=== PATIENT | male | born 1950 | race American Indian/Alaskan Native ===

== ENCOUNTER 2017-12-06 19:44 | Emergency (ER) | payer SELFPAY ==
[2017-12-06 20:18] VITALS: BP 126/85
--- NOTE | 2017-12-06 23:19 | XRay Report ---
FINAL REPORT PROCEDURE: XR SPINE CERVICAL 2-3V TECHNIQUE: Cervical spine radiographs, AP, lateral, and open-mouth odontoid views. CPT 47898 HISTORY: Neck pain COMPARISON: No prior studies are available for comparison. FINDINGS: Prevertebral soft tissues: Normal . Alignment: Normal . Vertebral body heights/Disk spaces: There is slight loss of disc space height at the C5-6 and C6-7 levels. Mild spur formation off the vertebral bodies is noted.. Fracture(s): None . Facets: Normal . Bone mineralization: Normal . IMPRESSION: There is no evidence of an acute fracture or dislocation of the cervical spine. Mild cervical spondylosis and degenerative disc change as described.
[2017-12-07] MEDS ORDERED: TYLENOL PO ONE (03:34)
[2017-12-07] MEDS ORDERED: TYLENOL ONE (03:39)
[2017-12-07] MEDS ORDERED: ULTRAM ONE (03:41)
[2017-12-07] MEDS ORDERED: ULTRAM PO ONE (03:48)
[2017-12-07] MEDS ORDERED: D50W (25GM) Syringe IV ONE (04:42)
== END 2017-12-07 03:41 | disposition left against medical advice (07) ==
LOC: ED 19:44
DX: R07.89 Other chest pain (principal); Z53.21 Procedure and treatment not carried out due to patient leaving prior to being seen by health care provider
CPT/HCPCS: 72040; 93005; 93010

== ENCOUNTER 2020-04-01 06:43 | Emergency (ER) | payer SELFPAY ==
[2020-04-01 07:16] VITALS: BP 131/93
[2020-04-01] MEDS ORDERED: IBUPROFEN 600 MG TAB PO ONE (07:54)
--- NOTE | 2020-04-01 07:55 | Emergency Department Report ---
ED Lower Extremity HPI - General Chief Complaint: Extremity Injury, Lower Stated Complaint: RIGHT TOE PAIN Time Seen by Provider: 04/01/20 07:53 Source: patient Mode of arrival: Ambulatory Limitations: No Limitations - History of Present Illness Initial Comments: The patient was evaluated in the emergency department for symptoms described in the history of present illness. He/she was evaluated in the context of the global COVID-19 pandemic, which necessitated consideration that the patient might be at risk for infection with the virus that causes COVID-19. Institutional protocols and algorithms that pertain to the evaluation of patients at risk for COVID-19 are in a state of rapid change based on information released by regulatory bodies including the CDC and federal and state organizations. These policies and algorithms were followed during the patient's care in the emergency department. Please note that these policies, procedures and recommendations changed on a rapid basis. 69-year-old -Citizen Of [place] male presents to the emergency room complaining of right foot pain of his toes status post injury on 03/20/2020. Patient states he was stepping out of the shower when he had injured his right foot toes. Patient states that he tried to set them himself but still having pain. Patient reports that he went to the [facility] to have them evaluated but the ordering doctor put it in for the wrong x-ray of the left foot and they were not able to do it. Therefore patient decided to come here to be evaluated. Patient has been using crutches to help ambulate. 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 MD Complaint: foot injury Onset/Timin -: week(s) Injury: Toes: Right Type of Injury: hyperflexion Place: home Severity: severe Severity scale (0 -10): 10 Improves With: nothing Worsens With: weight bearing, movement, palpation Associated Symptoms: swelling, able to partially bear weight - Related Data Previous Rx's Medication Instructions Recorded Last Taken Type Ibuprofen [Motrin 800 MG tab] 800 mg PO Q8HR PRN #30 tablet 04/01/20 Unknown Rx traMADoL [Ultram 50 MG tab] 50 mg PO Q6HR PRN #15 tablet 04/01/20 Unknown Rx Allergies Allergy/AdvReac Type Severity Reaction Status Date / Time acetaminophen [From Tylenol] AdvReac Unknown Verified 04/01/20 07:10 ED Review of Systems ROS: Stated complaint: RIGHT TOE PAIN Other details as noted in HPI Comment: All other systems reviewed and negative ED Past Medical Hx - Past Medical History Additional medical history: Chronic back pain, degenerative disc, L4-5. Sciatica - Social History Smoking Status: Never Smoker Substance Use Type: None - Medications Home Medications: Home Medications Medication Instructions Recorded Confirmed Last Taken Type Ibuprofen [Motrin 800 MG tab] 800 mg PO Q8HR PRN #30 tablet 04/01/20 Unknown Rx traMADoL [Ultram 50 MG tab] 50 mg PO Q6HR PRN #15 tablet 04/01/20 Unknown Rx ED Physical Exam - General Limitations: No Limitations General appearance: alert, in no apparent distress - Head Head exam: Present: atraumatic, normocephalic - Eye Eye exam: Present: normal appearance, EOMI - ENT ENT exam: Present: mucous membranes moist - Respiratory Respiratory exam: Absent: accessory muscle use - Expanded Lower Extremity Exam Right Hip exam: Present: normal inspection Upper Leg exam: Present: normal inspection Knee exam: Present: normal inspection Lower Leg exam: Present: normal inspection Ankle exam: Present: normal inspection Foot/Toe exam: Present: tenderness, swelling, ecchymosis Neuro vascular tendon exam: Present: no vascular compromise - Back Exam Back exam: Present: normal inspection - Neurological Exam Neurological exam: Present: alert, oriented X3 - Psychiatric Psychiatric exam: Present: normal affect, normal mood - Skin Skin exam: Present: warm, dry, intact, normal color. Absent: rash ED Course Vital Signs 04/01/20 04/01/20 07:14 08:01 Temperature 97.8 F Pulse Rate 57 L Respiratory 18 20 Rate Blood Pressure 131/93 O2 Sat by Pulse 96 Oximetry ED Lower Extremity MDM - Radiology Data Radiology results: report reviewed Patient: IRISH LEMONS MR#: [id number] [birth year] : 1950 Acct:[id number] Age/Sex: 69 / M ADM Date: 04/01/20 Loc: ED Attending Dr: Ordering Physician: HONEY BUCIO MD Date of Service: 04/01/20 Procedure(s): XR foot 3+V RT Accession Number(s): [id number] cc: HONEY BUCIO MD Fluoro Time In Minutes: RIGHT FOOT 3 VIEWS INDICATION / CLINICAL INFORMATION: PAIN AND SWELLING. COMPARISON: None available. FINDINGS: Slightly displaced fractures are demonstrated involving the proximal phalanges of the third, fourth and fifth toes. Signer Name: Sen Geller MD Signed: 04/01/2020 9:18 AM Workstation Name: [id number] Transcribed By: TM Dictated By: Sen Geller MD Electronically Authenticated By: Sen Geller MD Signed Date/Time: 04/01/20917 DD/ 5 TD/TT: - Medical Decision Making 69-year-old -Citizen Of [place] male presents to the emergency room complaining of right foot pain of his toes status post injury on 03/20/2020. Patient states he was stepping out of the shower when he had injured his right foot toes. Patient states that he tried to set them himself but still having pain. [facility] but the ordering doctor put it in for the wrong x-ray of the left foot and they were not able to do it. Therefore patient decided to come here to be evaluated. Patient has been using crutches to help ambulate. 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 X-ray of right foot toes have been ordered. Ibuprofen 600 mg have been ordered for pain management. X-ray reveals third fourth and fifth toes slight distance placed fractures. Patient be placed in a postsurgical boot juan josé tape and referral to orthopedic with pain medication. Critical care attestation.: If time is entered above; I have spent that time in minutes in the direct care of this critically ill patient, excluding procedure time. ED Disposition Clinical Impression: Fracture of multiple toes Disposition: DC-01 TO HOME OR SELFCARE Is pt being admited?: No Does the pt Need Aspirin: No Condition: Stable Instructions: Toe Fracture, [id number] Additional Instructions: X-ray shows that you have fractured/broken your third fourth and fifth toe of your right foot. I like for you to use your crutches wear your postop shoe. Follow-up with an customer training specialist. Take pain medication as needed. Do not operate heavy machinery while taking tramadol. Prescriptions: Ibuprofen [Motrin 800 MG tab] 800 mg PO Q8HR PRN #30 tablet PRN Reason: Pain , Severe (7-10) traMADoL [Ultram 50 MG tab] 50 mg PO Q6HR PRN #15 tablet PRN Reason: Pain Referrals: MITCHELL VILLANUEVA MD [Staff Physician] - 3-5 Days MAURI WATTS MD [Staff Physician] - 3-5 Days Forms: Work/School Release Form(ED)
--- NOTE | 2020-04-01 09:23 | XRay Report ---
RIGHT FOOT 3 VIEWS INDICATION / CLINICAL INFORMATION: PAIN AND SWELLING. COMPARISON: None available. FINDINGS: Slightly displaced fractures are demonstrated involving the proximal phalanges of the third, fourth a nd fifth toes. Signer Name: Sen Geller MD Signed: 04/01/2020 9:18 AM Workstation Name: [email or web address]
== END 2020-04-01 11:09 | disposition home or self-care (01) ==
LOC: ED 06:43
DX: S92.411A Displaced fracture of proximal phalanx of right great toe, initial encounter for closed fracture (principal); Z79.899 Other long term (current) drug therapy; W18.31XA Fall on same level due to stepping on an object, initial encounter; Y93.89 Activity, other specified; Y92.89 Other specified places as the place of occurrence of the external cause; Y99.8 Other external cause status
CPT/HCPCS: 99283